=== PATIENT | female | born 1975 | race Caucasian/White ===

== ENCOUNTER 2017-08-31 01:00 | Day surgery (SDC) | payer BC ==
[2017-08-31] MEDS ORDERED: Ondansetron 4 MG/2 ML SDV IVPUSH ONE (01:11)
[2017-08-31] MEDS ORDERED: Ketorolac 30 MG/ML SDV IVPUSH ONE (01:11)
[2017-08-31] MEDS ORDERED: Sodium Chloride 0.9% 1,000 ML IV ONE (01:11)
--- NOTE | 2017-08-31 01:12 | EDM.PDOC ---
ED HPI GENERAL MEDICAL PROBLEM - General Chief Complaint: Abdominal Pain Stated Complaint: PAIN ON RIGHT SIDE Time Seen by Provider: 08/31/17 01:12 Source of Information: Reports: Patient - History of Present Illness INITIAL COMMENTS - FREE TEXT/NARRATIVE: HISTORY AND PHYSICAL: History of present illness: [Patient presents with right lower quadrant pain that began yesterday afternoon she's had one episode of vomiting no fever chills sweats rates pain 6 out of 10 worsened by movement Currently denies fever she did vomit one time in the waiting room no chills or sweats no chest pain shortness breath headache dizziness palpitation no bowel or urine symptoms ] Review of systems: As per history of present illness and below otherwise all systems reviewed and negative. Past medical history: As per history of present illness and as reviewed below otherwise noncontributory. Surgical history: As per history of present illness and as reviewed below otherwise noncontributory. Social history: No reported history of drug or alcohol abuse. Family history: As per history of present illness and as reviewed below otherwise noncontributory. Physical exam: HEENT: Atraumatic, normocephalic, pupils reactive, negative for conjunctival pallor or scleral icterus, mucous membranes moist, throat clear, neck supple, nontender, trachea midline. Lungs: Clear to auscultation, breath sounds equal bilaterally, chest nontender. Heart: S1S2, regular, negative for clicks, rubs, or JVD. Abdomen: Soft, nondistended, nontender. Negative for masses or hepatosplenomegaly. Negative for costovertebral tenderness. Pelvis: Stable nontender. Genitourinary: Deferred. Rectal: Deferred. Extremities: Atraumatic, negative for cords or calf pain. Neurovascular unremarkable. Neuro: Awake, alert, oriented. Cranial nerves II through XII unremarkable. Cerebellum unremarkable. Motor and sensory unremarkable throughout. Exam nonfocal. Diagnostics: [CBC CMP UA hCG lipase troponin CT abdomen pelvis with contrast ] Therapeutics: [1 L normal saline bolus Zofran 8 mg IV Toradol 30 mg IV ]1 g Rocephin IV Impression: Appendicitis [ abdominal pain ] Definitive disposition and diagnosis as appropriate pending reevaluation and review of above. Abdomen Pain Score (Numeric/FACES): 8 - Related Data Allergies Allergy/AdvReac Type Severity Reaction Status Date / Time acetaminophen [From Percocet] AdvReac Vomiting Verified 08/31/17 01:13 aspirin [From Percodan] AdvReac Vomiting Verified 08/31/17 01:13 oxycodone HCl [From Percocet] AdvReac Vomiting Verified 08/31/17 01:13 oxycodone terephthalate AdvReac Vomiting Verified 08/31/17 01:13 [From Percodan] Home Meds: Home Meds Cyclobenzaprine [Flexeril] 10 mg PO TID PRN 07/31/14 [History] Metoprolol Succinate 50 mg PO DAILY 07/31/14 [History] Social & Family History - Tobacco Use Smoking Status *Q: Current Every Day Smoker Years of Tobacco use: 20 Used Tobacco, but Quit: No Second Hand Smoke Exposure: No - Alcohol Use Days Per Week of Alcohol Use: 0 - Recreational Drug Use Recreational Drug Use: No ED ROS GENERAL - Review of Systems Review Of Systems: ROS reveals no pertinent complaints other than HPI. ED EXAM, GENERAL - Physical Exam Exam: See Below Course - Vital Signs Last Recorded V/S: Last Vital Signs Temp 98.7 F 08/31/17 02:53 Pulse 99 08/31/17 02:53 Resp 18 08/31/17 02:53 BP 135/84 08/31/17 02:53 Pulse Ox 94 L 08/31/17 02:53 - Orders/Labs/Meds Orders: Active Orders 24 hr Category Date Time Status Abdomen Pelvis w wo Cont [CT] Stat Exams 08/31/17 01:53 Taken UA W/MICROSCOPIC [URIN] Stat Lab 08/31/17 01:18 Ordered Sodium Chloride 0.9% [Normal Saline] 1,000 ml Med 08/31/17 03:00 Ordered IV STAT cefTRIAXone [Rocephin in Dextrose,Iso-Osm 1 GM/50 ML] 1 Med 08/31/17 02:58 Ordered gm Premix Bag 1 bag IV ONETIME Medication Orders Ceftriaxone Sodium/Dextrose 1 (gm/ Premix) 50 mls @ 100 mls/hr IV ONETIME ONE Stop: 08/31/17 03:27 Sodium Chloride (Normal Saline) 1,000 mls @ 125 mls/hr IV STAT MARISOL Labs: Laboratory Tests 08/31/17 08/31/17 08/31/17 Range/Units 01:18 01:38 01:38 WBC 18.20 H (4.0-11.0) K/uL RBC 4.79 (4.30-5.90) M/uL Hgb 14.9 (12.0-16.0) g/dL Hct 43.8 (36.0-46.0) % MCV 91.4 (80.0-98.0) fL MCH 31.1 (27.0-32.0) pg MCHC 34.0 (31.0-37.0) g/dL RDW Std Deviation 44.1 (28.0-62.0) fl RDW Coeff of Enzo 13 (11.0-15.0) % Plt Count 266 (150-400) K/uL MPV 9.60 (7.40-12.00) fL Neut % (Auto) 81.0 H (48.0-80.0) % Lymph % (Auto) 11.4 L (16.0-40.0) % [place] % (Auto) 6.6 (0.0-15.0) % Eos % (Auto) 0.8 (0.0-7.0) % Baso % (Auto) 0.2 (0.0-1.5) % Neut # (Auto) 14.8 H (1.4-5.7) K/uL Lymph # (Auto) 2.1 (0.6-2.4) K/uL [place] # (Auto) 1.2 H (0.0-0.8) K/uL Eos # (Auto) 0.1 (0.0-0.7) K/uL Baso # (Auto) 0.0 (0.0-0.1) K/uL Sodium 138 (136-145) mmol/L Potassium 3.8 (3.5-5.1) mmol/L Chloride 103 (98-107) mmol/L Carbon Dioxide 22.0 (21.0-32.0) mmol/L BUN 8 (7.0-18.0) mg/dL Creatinine 0.7 (0.6-1.0) mg/dL Est Cr Clr Drug Dosing 89.48 mL/min Estimated GFR (MDRD) > 60.0 ml/min Glucose 116 H (74-106) mg/dL Calcium 9.3 (8.5-10.1) mg/dL Total Bilirubin 0.3 (0.2-1.0) mg/dL AST 18 (15-37) IU/L ALT 24 (14-63) IU/L Alkaline Phosphatase 93 (46-116) U/L Troponin I < 0.050 (0.000-0.056) ng/mL Total Protein 6.9 (6.4-8.2) g/dL Albumin 3.7 (3.4-5.0) g/dL Globulin 3.2 (2.0-3.5) g/dL Albumin/Globulin Ratio 1.2 L (1.3-2.8) Lipase 109 (73-393) U/L HCG, Quant 3.0 mIU/mL Urine Color YELLOW Urine Appearance CLEAR Urine pH 6.0 (5.0-8.0) Ur Specific [place] >= 1.030 (1.001-1.035) Urine Protein 100 (NEGATIVE) mg/dL Urine Glucose (UA) NEGATIVE (NEGATIVE) mg/dL Urine Ketones 40 H (NEGATIVE) mg/dL Urine Occult Blood LARGE H (NEGATIVE) Urine Nitrite NEGATIVE (NEGATIVE) Urine Bilirubin MODERATE H (NEGATIVE) Urine Ictotest POSITIVE Urine Urobilinogen 0.2 (<2.0) EU/dL Ur Leukocyte Esterase NEGATIVE (NEGATIVE) Urine RBC 0-2 (0-2/HPF) Urine WBC 0-2 (0-5/HPF) Ur Epithelial Cells FEW (NONE-FEW) Urine Bacteria 2+ H (NEGATIVE) Urine Mucus LIGHT (NONE-MOD) Meds: Medications Generic Name Dose Route Start Last Admin Trade Name Freq PRN Reason Stop Dose Admin Ceftriaxone Sodium/Dextrose 1 50 mls @ 100 mls/hr 08/31/17 02:58 gm/ Premix IV 08/31/17 03:27 ONETIME ONE Sodium Chloride 1,000 mls @ 125 mls/hr 08/31/17 03:00 Normal Saline IV STAT MARISOL Discontinued Medications Generic Name Dose Route Start Last Admin Trade Name Freq PRN Reason Stop Dose Admin Sodium Chloride 1,000 mls @ 999 mls/hr 08/31/17 01:11 08/31/17 01:37 Normal Saline IV 08/31/17 02:11 999 mls/hr STAT ONE Administration Ketorolac Tromethamine 30 mg 08/31/17 01:11 08/31/17 01:39 Toradol IVPUSH 08/31/17 01:12 30 mg ONETIME ONE Administration Ondansetron HCl 8 mg 08/31/17 01:11 08/31/17 01:37 Zofran IVPUSH 08/31/17 01:12 8 mg ONETIME ONE Administration Departure - Departure Time of Disposition: 03:03 Disposition: Refer to Observation Condition: Fair Clinical Impression: Appendicitis - Discharge Information Referrals: PCP,None [Primary Care Provider] - Forms: ED Department Discharge - My Orders Last 24 Hours: My Active Orders 08/31/17 01:18 UA W/MICROSCOPIC [URIN] Stat 08/31/17 01:53 Abdomen Pelvis w wo Cont [CT] Stat 08/31/17 02:58 cefTRIAXone [Rocephin in Dextrose,Iso-Osm 1 GM/50 ML] 1 gm Premix Bag 1 bag IV ONETIME 08/31/17 03:00 Sodium Chloride 0.9% [Normal Saline] 1,000 ml IV STAT - Assessment/Plan Last 24 Hours: My Active Orders 08/31/17 01:18 UA W/MICROSCOPIC [URIN] Stat 08/31/17 01:53 Abdomen Pelvis w wo Cont [CT] Stat 08/31/17 02:58 cefTRIAXone [Rocephin in Dextrose,Iso-Osm 1 GM/50 ML] 1 gm Premix Bag 1 bag IV ONETIME 08/31/17 03:00 Sodium Chloride 0.9% [Normal Saline] 1,000 ml IV STAT
[2017-08-31 02:16] LABS: CHLORIDE,CL 103 mmol/L (98-107); SODIUM,NA 138 mmol/L (136-145)
[2017-08-31] MEDS ORDERED: cefTRIAXone 1 GM in Premix Bag 1 BAG IV ONE (02:58)
[2017-08-31] MEDS ORDERED: Sodium Chloride 0.9% 1,000 ML IV SCH (03:00)
[2017-08-31] MEDS ORDERED: CEFTRIAXONE IV ONE ×2 (03:15)
[2017-08-31] MEDS ORDERED: DEXTROSE 5% IV ONE ×2 (03:15)
[2017-08-31] MEDS ORDERED: WATER IV ONE ×2 (03:15)
[2017-08-31] MEDS ORDERED: Bupivacaine 25%/EPINEPHrine/PF 30 ML ONE (03:57)
[2017-08-31] MEDS ORDERED: Propofol 200 MG/20 ML SDV ONE (04:00)
[2017-08-31] MEDS ORDERED: Ondansetron 4 MG/2 ML SDV ONE (04:00)
[2017-08-31] MEDS ORDERED: Rocuronium 10 MG/ML 10 ML Syringe ONE (04:00)
[2017-08-31] MEDS ORDERED: Succinylcholine 200 MG/10 ML MDV ONE (04:00)
[2017-08-31] MEDS ORDERED: diphenhydrAMINE 50 MG/ML SDV ONE (04:00)
[2017-08-31] MEDS ORDERED: Midazolam 1 MG/ML 2 ML SDV ONE (04:00)
[2017-08-31] MEDS ORDERED: Dexamethasone 4 MG/ML 5 ML MDV ONE (04:00)
[2017-08-31] MEDS ORDERED: Lidocaine 2% 5 ML SDV ONE (04:00)
[2017-08-31] MEDS ORDERED: fentaNYL 250 MCG/5 ML SDV ONE (04:01)
--- NOTE | 2017-08-31 04:58 | PCM.PREANE ---
Preanesthetic Assessment - Procedure Proposed Procedure: Laparoscopic Appendectomy - Anesthesia/Transfusion/Family Hx Anesthesia History: Prior Anesthesia Without Reaction Family History of Anesthesia Reaction: No Transfusion History: Unknown - Review of Systems General: No Symptoms Pulmonary: Cough Cardiovascular: No Symptoms Gastrointestinal: Abdominal Pain, Nausea, Vomiting Neurological: No Symptoms Other: Reports: None - Physical Assessment NPO Status Date: 08/30/17 NPO Status Time: 20:00 O2 Sat by Pulse Oximetry: 95 Respiratory Rate: 14 Vital Signs: Last Vital Signs Temp 37.0 C 08/31/17 03:58 Pulse 87 08/31/17 03:58 Resp 14 08/31/17 03:58 BP 151/90 H 08/31/17 03:58 Pulse Ox 95 08/31/17 03:58 Height: 5 ft 4 in Weight: 86.183 kg ASA Class: 2E Mental Status: Alert & Oriented x3 Airway Class: Mallampati = 1 Dentition: Reports: Normal Dentition, Edentulous (on top), Broken Tooth/Teeth ( broken missing teeth on bottom black in color), Missing Tooth/Teeth, Caries Thyro-Mental Finger Breadths: 3 Mouth Opening Finger Breadths: 3 ROM/Head Extension: Full Lungs: Decreased Breath Sounds, Crackles Cardiovascular: Regular Rate - Lab Values: Laboratory Last Values WBC 18.20 K/uL (4.0-11.0) H 08/31/17 01:38 RBC 4.79 M/uL (4.30-5.90) 08/31/17 01:38 Hgb 14.9 g/dL (12.0-16.0) 08/31/17 01:38 Hct 43.8 % (36.0-46.0) 08/31/17 01:38 MCV 91.4 fL (80.0-98.0) 08/31/17 01:38 MCH 31.1 pg (27.0-32.0) 08/31/17 01:38 MCHC 34.0 g/dL (31.0-37.0) 08/31/17 01:38 RDW Std Deviation 44.1 fl (28.0-62.0) 08/31/17 01:38 RDW Coeff of Enzo 13 % (11.0-15.0) 08/31/17 01:38 Plt Count 266 K/uL (150-400) 08/31/17 01:38 MPV 9.60 fL (7.40-12.00) 08/31/17 01:38 Neut % (Auto) 81.0 % (48.0-80.0) H 08/31/17 01:38 Lymph % (Auto) 11.4 % (16.0-40.0) L 08/31/17 01:38 [place] % (Auto) 6.6 % (0.0-15.0) 08/31/17 01:38 Eos % (Auto) 0.8 % (0.0-7.0) 08/31/17 01:38 Baso % (Auto) 0.2 % (0.0-1.5) 08/31/17 01:38 Neut # (Auto) 14.8 K/uL (1.4-5.7) H 08/31/17 01:38 Lymph # (Auto) 2.1 K/uL (0.6-2.4) 08/31/17 01:38 [place] # (Auto) 1.2 K/uL (0.0-0.8) H 08/31/17 01:38 Eos # (Auto) 0.1 K/uL (0.0-0.7) 08/31/17 01:38 Baso # (Auto) 0.0 K/uL (0.0-0.1) 08/31/17 01:38 Sodium 138 mmol/L (136-145) 08/31/17 01:38 Potassium 3.8 mmol/L (3.5-5.1) 08/31/17 01:38 Chloride 103 mmol/L (98-107) 08/31/17 01:38 Carbon Dioxide 22.0 mmol/L (21.0-32.0) 08/31/17 01:38 BUN 8 mg/dL (7.0-18.0) 08/31/17 01:38 Creatinine 0.7 mg/dL (0.6-1.0) 08/31/17 01:38 Est Cr Clr Drug Dosing 89.48 mL/min 08/31/17 01:38 Estimated GFR (MDRD) > 60.0 ml/min 08/31/17 01:38 Glucose 116 mg/dL (74-106) H 08/31/17 01:38 Calcium 9.3 mg/dL (8.5-10.1) 08/31/17 01:38 Total Bilirubin 0.3 mg/dL (0.2-1.0) 08/31/17 01:38 AST 18 IU/L (15-37) 08/31/17 01:38 ALT 24 IU/L (14-63) 08/31/17 01:38 Alkaline Phosphatase 93 U/L (46-116) 08/31/17 01:38 Troponin I < 0.050 ng/mL (0.000-0.056) 08/31/17 01:38 Total Protein 6.9 g/dL (6.4-8.2) 08/31/17 01:38 Albumin 3.7 g/dL (3.4-5.0) 08/31/17 01:38 Globulin 3.2 g/dL (2.0-3.5) 08/31/17 01:38 Albumin/Globulin Ratio 1.2 (1.3-2.8) L 08/31/17 01:38 Lipase 109 U/L (73-393) 08/31/17 01:38 HCG, Quant 3.0 mIU/mL 08/31/17 01:38 Urine Color YELLOW 08/31/17 01:18 Urine Appearance CLEAR 08/31/17 01:18 Urine pH 6.0 (5.0-8.0) 08/31/17 01:18 Ur Specific [place] >= 1.030 (1.001-1.035) 08/31/17 01:18 Urine Protein 100 mg/dL (NEGATIVE) 08/31/17 01:18 Urine Glucose (UA) NEGATIVE mg/dL (NEGATIVE) 08/31/17 01:18 Urine Ketones 40 mg/dL (NEGATIVE) H 08/31/17 01:18 Urine Occult Blood LARGE (NEGATIVE) H 08/31/17 01:18 Urine Nitrite NEGATIVE (NEGATIVE) 08/31/17 01:18 Urine Bilirubin MODERATE (NEGATIVE) H 08/31/17 01:18 Urine Ictotest POSITIVE 08/31/17 01:18 Urine Urobilinogen 0.2 EU/dL (<2.0) 08/31/17 01:18 Ur Leukocyte Esterase NEGATIVE (NEGATIVE) 08/31/17 01:18 Urine RBC 0-2 (0-2/HPF) 08/31/17 01:18 Urine WBC 0-2 (0-5/HPF) 08/31/17 01:18 Ur Epithelial Cells FEW (NONE-FEW) 08/31/17 01:18 Urine Bacteria 2+ (NEGATIVE) H 08/31/17 01:18 Urine Mucus LIGHT (NONE-MOD) 08/31/17 01:18 - Allergies Allergies/Adverse Reactions: Allergies Allergy/AdvReac Type Severity Reaction Status Date / Time acetaminophen [From Percocet] AdvReac Vomiting Verified 08/31/17 01:13 aspirin [From Percodan] AdvReac Vomiting Verified 08/31/17 01:13 oxycodone HCl [From Percocet] AdvReac Vomiting Verified 08/31/17 01:13 oxycodone terephthalate AdvReac Vomiting Verified 08/31/17 01:13 [From Percodan] - Blood Blood Available: No - Acknowledgements Anesthesia Type Planned: General Anesthesia (RSI ET tube) Pt an Appropriate Candidate for the Planned Anesthesia: Yes Alternatives and Risks of Anesthesia Discussed w Pt/Guardian: Yes Pt/Guardian Understands and Agrees with Anesthesia Plan: Yes PreAnesthesia Questionnaire HEENT History: Reports: None Cardiovascular History: Reports: None Respiratory History: Reports: None Gastrointestinal History: Reports: None Genitourinary History: Reports: None 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: Musculoskeletal History: Reports: None Neurological History: Reports: None Psychiatric History: Reports: None Endocrine/Metabolic History: Reports: None Hematologic History: Reports: None Immunologic History: Reports: None Oncologic (Cancer) History: Reports: None Dermatologic History: Reports: None - Infectious Disease History Infectious Disease History: Reports: None - Past Surgical History Head Surgeries/Procedures: Reports: None GI Surgical History: Reports: Cholecystectomy Female Surgical History: Reports: Hysterectomy - SUBSTANCE USE Smoking Status *Q: Current Every Day Smoker Second Hand Smoke Exposure: No Days Per Week of Alcohol Use: 0 Recreational Drug Use History: No - HOME MEDS Home Medications: Home Meds Cyclobenzaprine [Flexeril] 10 mg PO TID PRN 07/31/14 [History] Metoprolol Succinate 50 mg PO DAILY 07/31/14 [History] - CURRENT (IN HOUSE) MEDS Current Meds: Current Medications Sodium Chloride (Normal Saline) 1,000 mls @ 125 mls/hr IV STAT MARISOL Last Admin: 08/31/17 03:12 Dose: 125 mls/hr Discontinued Medications Dexamethasone (Dexamethasone) Confirm Administered Dose 20 mg .ROUTE .STK-MED ONE Stop: 08/31/17 04:01 Diphenhydramine HCl (Benadryl) Confirm Administered Dose 50 mg .ROUTE .STK-MED ONE Stop: 08/31/17 04:01 Fentanyl (Sublimaze) Confirm Administered Dose 250 mcg .ROUTE .STK-MED ONE Stop: 08/31/17 04:02 Sodium Chloride (Normal Saline) 1,000 mls @ 999 mls/hr IV STAT ONE Stop: 08/31/17 02:11 Last Admin: 08/31/17 01:37 Dose: 999 mls/hr Ceftriaxone Sodium/Dextrose 1 (gm/ Premix) 50 mls @ 100 mls/hr IV ONETIME ONE Stop: 08/31/17 03:27 Last Admin: 08/31/17 03:57 Dose: Not Given Ceftriaxone Sodium 1 mg/ (Dextrose/Water) 50 mls @ 100 mls/hr IV ONETIME ONE Stop: 08/31/17 03:27 Last Admin: 08/31/17 03:23 Dose: 100 mls/hr Bupivacaine HCl/Epinephrine Bitart (Sensorc Mpf 0.25%-Epi [id number]) Confirm Administered Dose 30 mls @ as directed .ROUTE .STK-MED ONE Stop: 08/31/17 03:58 Ketorolac Tromethamine (Toradol) 30 mg IVPUSH ONETIME ONE Stop: 08/31/17 01:12 Last Admin: 08/31/17 01:39 Dose: 30 mg Lidocaine (Xylocaine-Mpf 2%) Confirm Administered Dose 5 ml .ROUTE .STK-MED ONE Stop: 08/31/17 04:01 Midazolam HCl (Versed 1 Mg/Ml) Confirm Administered Dose 2 mg .ROUTE .STK-MED ONE Stop: 08/31/17 04:01 Ondansetron HCl (Zofran) 8 mg IVPUSH ONETIME ONE Stop: 08/31/17 01:12 Last Admin: 08/31/17 01:37 Dose: 8 mg Ondansetron HCl (Zofran) Confirm Administered Dose 4 mg .ROUTE .STK-MED ONE Stop: 08/31/17 04:01 Propofol (Diprivan 20 Ml) Confirm Administered Dose 200 mg .ROUTE .STK-MED ONE Stop: 08/31/17 04:01 Rocuronium [place] (Zemuron) Confirm Administered Dose 100 mg .ROUTE .STK-MED ONE Stop: 08/31/17 04:01 Succinylcholine Chloride (Quelicin) Confirm Administered Dose 200 mg .ROUTE .STskedge.me -MED ONE Stop: 08/31/17 04:01
--- NOTE | 2017-08-31 05:21 | HP ---
DATE OF : 1975 PRIMARY CARE PHYSICIAN: None PCP Consult was called and the patient was seen shortly after. CONSULTING QUESTION: Acute appendicitis. HISTORY OF PRESENT ILLNESS: The patient is a 42-year-old lady with poor dentition, complaining over a 36 hour history of a gradual onset of diffuse lower abdominal pain. The patient does not know how long it has been going on, just said it happened yesterday. Seek help in the emergency room. CAT scan shows a dilated appendix with stranding dirty fat, read as acute appendicitis. No perforation. Surgery was then consulted. The patient remarked that she has thrown up and felt lossy and had pain, and denied prior episode. PAST MEDICAL HISTORY: Denied diabetes, [place], CVA. The patient has hypertension, is taking metoprolol. PAST SURGICAL HISTORY: Total abdominal hysterectomy, laparoscopic cholecystectomy, a dental surgery. ALLERGIES: Please refer to nursing for details. MEDICATIONS: Please refer nursing for details. REVIEW OF SYSTEMS: Same as history of present illness. FAMILY HISTORY: Noncontributory. PHYSICAL EXAMINATION: GENERAL: A very pleasant, nice lady, appeared older than stated age, in no acute distress. HEENT: Normocephalic, atraumatic. Sclerae anicteric, and again poor dentition. LUNGS: Clear to auscultation. HEART: Regular rate and rhythm. ABDOMEN: Soft, nondistended. No pulsating tender midline abdominal structure. Well-healed laparoscopic surgery. No hernia appreciated. Well localized tenderness at the McBurney point. No rebound tenderness. LABORATORY DATA: Upon consultation, white count is 18. CAT scan is acute appendicitis without perforation or rupture and nonobstructive kidney stone on the left side and colonic diverticulosis and status post hysterectomy and cholecystectomy. ASSESSMENT AND PLAN: Reviewed CAT scan finding and history and physical with the patient and the patient has acute appendicitis and will benefit from a timely surgical intervention and we offered patient laparoscopic appendectomy. Risks and benefits discussed with the patient including, but not limited to bleeding, infection, damage to nearby organs and convert to open surgery or drain placement. The patient voiced understanding and proceed with plan. We will continue IV fluids at 125 and Rocephin already given, and we will obtain operative consent and proceed with surgery. The patient voiced understanding. YENNIFER / LIAM /[id number]
[2017-08-31] MEDS ORDERED: Glycopyrrolate 0.2 MG/ML SDV ONE (05:24)
[2017-08-31] MEDS ORDERED: Neostigmine Methylsulfate 1 MG/ML 5 ML Syringe ONE (05:24)
[2017-08-31] MEDS ORDERED: Albuterol 6.7 GM Inhaler INH ONE (05:46)
[2017-08-31] MEDS ORDERED: fentaNYL 100 MCG/2 ML SDV IVPUSH PRN (05:54)
[2017-08-31] MEDS ORDERED: Acetaminophen/oxyCODONE 325-7.5 MG Tab PO PRN (05:56)
[2017-08-31] MEDS ORDERED: Ondansetron 4 MG/2 ML SDV IVPUSH PRN (05:56)
[2017-08-31] MEDS ORDERED: Lactated Ringers 1,000 ML IV SCH (06:00)
--- NOTE | 2017-08-31 06:35 | PCM.POSTAN ---
POST ANESTHESIA ASSESSMENT - MENTAL STATUS Mental Status: Alert, Oriented - RESPIRATORY Respiratory Status: Supplemental Oxygen (O2 via nasal canula) - CARDIOVASCULAR CV Status: Pulse Rate WNL, Blood Pressure Stable - PAIN Pain Score: 3 - POST OP HYDRATION Hydration Status: Adequate & Stable - OBSERVATIONS Free Text/Narrative:: resting
--- NOTE | 2017-08-31 06:54 | OR ---
SURGEON: Randal Graham MD DATE OF PROCEDURE: 08/31/2017 PREOPERATIVE DIAGNOSIS: Acute appendicitis. POSTOPERATIVE DIAGNOSIS: Acute appendicitis. PROCEDURE PERFORMED: Laparoscopic appendectomy. COMPLICATIONS: None. FINDINGS: Appendix is horrendously grossly swollen and edematous in the distal part and dusky and looks like it is about to rupture. Gross rupture is not observed, and the tip is tightly attached to surrounding organ and cannot be dissected almost, suggests it has been there for several days. DESCRIPTION OF PROCEDURE: The patient was taken to the operating room and placed in the supine position. Following induction of general endotracheal anesthesia, the patient's abdomen was prepped and draped in the sterile fashion. A time-out has been called. The patient was identified. The procedure was identified. The antibiotics were identified. The procedure then proceeded. The abdomen was prepped and draped in a standard fashion. After assessment of appropriate landmarks, a 12 millimeter trocar was inserted supraumbilically using Optiview and pneumoperitoneum was then achieved. This was followed with placement of 5 millimeter port in the right upper quadrant and another 5 millimeter port infraumbilically. The camera was inserted supraumbilical site and two laparoscopic Robin retractors were then inserted through the other two sites. Following the cecum, the appendix was located. The appendix was then lifted up, and using a GI stapler the appendix was amputated at the base. And using the GI stapler, the mesoappendix was then amputated. The appendix was retrieved by an endoscopic bag and sent for pathologist. This was then followed by re-insertion of the camera to examine the staple line, and hemostasis. The trocars were then removed. The umbilical site was closed with 2-0 Vicryl deep stitch and 4-0 Vicryl and Dermabond; the other two 5 mm port sites were closed with 4-0 Vicryl and Dermabond. The patient was then awakened, extubated, and transferred to the recovery room in hemodynamically stable condition. Prior to closing, sponge count and instrument count was correct. Intraoperative findings as dictated above. Gross perforation is not observed. At the end of the case, a piece of Surgicel was added for hemostasis. Dr. Graham was present throughout the whole procedure. As always, thank you for the kind referral. YENNIFER / LIAM /[id number] JUDITH
[2017-08-31 12:04] VITALS: BP 119/72
--- NOTE | 2017-08-31 12:38 | CT ---
EXAM DATE: 08/31/17 PATIENT'S AGE: 42 Patient: LORI RICHARDS Facility: [place], [place] : 1975 Study: CT Abdomen/Pelvis W/ and W/O Cont [id number] 2:31:08 AM Ordering Physician: Katalina Veras Final Report: INDICATION: Right lower quadrant pain TECHNIQUE: CT abdomen and pelvis acquired without and with IV contrast. COMPARISON: None FINDINGS: Lower chest: Unremarkable. Liver: Unremarkable. Spleen: Unremarkable. Pancreas: Unremarkable. Gallbladder and bile ducts: Status post cholecystectomy. Adrenal glands: Unremarkable. Kidneys: Nonobstructing 6 mm stone in the left kidney. There are few subcentimeter hypodensities in both kidneys, too small to accurately characterize. GI tract: The appendix measures 1.8 cm in diameter. There is periappendiceal fat stranding. No abscess or extraluminal air. Mild, diffuse colonic diverticulosis. Vascular structures: Unremarkable. Lymph nodes: Unremarkable. Miscellaneous: Unremarkable. No free air or significant free fluid. Pelvic Organs: Status post hysterectomy. Trace free fluid in the pelvis. Bones: Unremarkable for age. IMPRESSION: 1. Acute appendicitis without evidence for rupture or abscess formation. These findings were discussed with Dr. Darden at 2:56 a.m. on August 31, 2017. 2. Nonobstructive left nephrolithiasis. 3. Colonic diverticulosis. 4. Status post hysterectomy and cholecystectomy. Please note that all CT scans at this facility use dose modulation, iterative reconstruction, and/or weight-based dosing when appropriate to reduce radiation dose to as low as reasonably achievable. Dictated by Monica Patino MD @ Aug 31 2017 2:50AM (Electronic Signature) Report Signed by Proxy. [facility]
--- NOTE | 2017-08-31 13:52 | PCM48HPAN ---
Post Anesthesia Note - EVALUATION WITHIN 48HRS OF ANESTHETIC Vital Signs in Normal Range: Yes Patient Participated in Evaluation: Yes Respiratory Function Stable: Yes Airway Patent: Yes Cardiovascular Function Stable: Yes Hydration Status Stable: Yes Pain Control Satisfactory: Yes Nausea and Vomiting Control Satisfactory: Yes Mental Status Recovered: Yes Resp Rate: 18 - COMMENTS/OBSERVATIONS Free Text/Narrative:: Benton her care was good. Pain controlled. Satisfied with care by WOOD MODEL BUILDER early this AM.
== END 2017-08-31 14:00 | disposition home or self-care (01) ==
LOC: MW.ED 01:00 → MW.SDS 03:44 → MW.MS 03:47 → MW.SDS 14:00
PROVIDERS: ATTEND Surgery
DX: K35.80 Unspecified acute appendicitis (principal); I10 Essential (primary) hypertension; Z79.899 Other long term (current) drug therapy
CPT/HCPCS: 36415; 44970; 74178; 80053; 81001; 83690; 84484; 84702; 85025; 96361; 96365; 96375; 99285; A9270; C1776; J0330; J0696; J1100; J1200; J1885; J2250; J2405; J3010; J7040; J7060; J7120; 00840; 88304; 99284; J2704

== ENCOUNTER 2019-03-02 08:07 | Emergency (ER) | payer BC ==
[2019-03-02] MEDS ORDERED: Sodium Chloride 0.9% 1,000 ML IV ONE (08:32)
[2019-03-02] MEDS ORDERED: Ketorolac 30 MG/ML SDV IVPUSH ONE ×3 (08:46→09:15)
[2019-03-02 09:07] LABS: BLOOD UREA NITROGEN,BUN 10 mg/dL (7.0-18.0); CARBON DIOXIDE,CO2 23.5 mmol/L (21.0-32.0); CHLORIDE,CL 105 mmol/L (98-107); GLUCOSE RANDOM 92 mg/dL (74-106); POTASSIUM,K 4.4 mmol/L (3.5-5.1); SODIUM,NA 139 mmol/L (136-145)
[2019-03-02] MEDS ORDERED: Ondansetron 4 MG/2 ML SDV IVPUSH ONE (09:15)
[2019-03-02] MEDS ORDERED: Morphine 4 MG/ML Syringe IVPUSH ONE (09:16)
--- NOTE | 2019-03-02 10:03 | EDM.PDOC ---
ED HPI GENERAL MEDICAL PROBLEM - General Chief Complaint: Abdominal Pain Stated Complaint: ABD PAIN Time Seen by Provider: 03/02/19 08:18 Source of Information: Reports: Patient History Limitations: Reports: No Limitations - History of Present Illness INITIAL COMMENTS - FREE TEXT/NARRATIVE: History of present illness: []Patient awoke at 6 AM this morning with severe left flank pain and left lower quadrant pain. She has not had this pain before. She denies any fevers, chills, vomiting, pain with urination or bleeding, but is nauseated. Review of systems: As per history of present illness and below otherwise all systems reviewed and negative. Past medical history: As per history of present illness and as reviewed below otherwise noncontributory. Surgical history: As per history of present illness and as reviewed below otherwise noncontributory. Social history: No reported history of drug or alcohol abuse. Family history: As per history of present illness and as reviewed below otherwise noncontributory. Physical exam: General: Well developed, well nourished in full distress HEENT: Atraumatic, normocephalic, pupils reactive, negative for conjunctival pallor or scleral icterus, mucous membranes moist, throat clear, neck supple, nontender, trachea midline. Lungs: Clear to auscultation, breath sounds equal bilaterally, chest nontender. Heart: S1S2, regular, negative for clicks, rubs, or JVD. Abdomen: NABS, Soft, nondistended, nontender. Negative for masses or hepatosplenomegaly. Negative for costovertebral tenderness. Pelvis: Stable nontender. Genitourinary: Deferred. Rectal: Deferred. Extremities: Atraumatic, negative for cords or calf pain. Neurovascular unremarkable. Neuro: Awake, alert, oriented. Cranial nerves II through XII unremarkable. Cerebellum unremarkable. Motor and sensory unremarkable throughout. Exam nonfocal. Skin:warm and dry Diagnostics: CBC, chemistry, UA, hCG CT abdomen and pelvis without contrast Therapeutics: Saline, Toradol,morphine, Zofran ED Course: srable Impression: Left 3 mm stone at the UVJ Prescriptions: fLomax, tramadol Plan: Follow-up with urology, go home Definitive disposition and diagnosis as appropriate pending reevaluation and review of above. left lower abd Pain Score (Numeric/FACES): 8 - Related Data Allergies Allergy/AdvReac Type Severity Reaction Status Date / Time No Known Allergies Allergy Verified 03/02/19 09:14 Home Meds: Home Meds Metoprolol Succinate 100 mg PO DAILY 07/31/14 [History] Levothyroxine [Synthroid] 50 mcg PO ACBREAKFAST 03/02/19 [History] Tamsulosin HCl [Flomax] 0.4 mg PO DAILY #14 cap.er.24h 03/02/19 [Rx] traMADol HCl [Tramadol HCl] 50 mg PO Q6H PRN #16 tablet 03/02/19 [Rx] valACYclovir [Valtrex] 03/02/19 [History] Past Medical History HEENT History: Reports: None Cardiovascular History: Reports: None, Hypertension Respiratory History: Reports: None Gastrointestinal History: Reports: None Genitourinary History: Reports: None [employer] History: Reports: Musculoskeletal History: Reports: None Neurological History: Reports: None Psychiatric History: Reports: None Endocrine/Metabolic History: Reports: None Hematologic History: Reports: None Immunologic History: Reports: None Oncologic (Cancer) History: Reports: None Dermatologic History: Reports: None - Infectious Disease History Infectious Disease History: Reports: None - Past Surgical History Head Surgeries/Procedures: Reports: None GI Surgical History: Reports: Appendectomy, Cholecystectomy Female Surgical History: Reports: Hysterectomy Social & Family History - Family History Family Medical History: Noncontributory - Tobacco Use Smoking Status *Q: Current Every Day Smoker Years of Tobacco use: 30 Packs/Tins Daily: 1 - Caffeine Use Caffeine Use: Reports: Coffee - Recreational Drug Use Recreational Drug Use: No ED ROS GENERAL - Review of Systems Review Of Systems: See Below ED EXAM, RENAL/ - Physical Exam Exam: See Below Course - Vital Signs Last Recorded V/S: Last Vital Signs Temp 96.3 F 03/02/19 08:15 Pulse 72 03/02/19 08:15 Resp 18 03/02/19 08:15 BP 157/92 H 03/02/19 08:15 Pulse Ox 100 03/02/19 08:15 - Orders/Labs/Meds Orders: Active Orders 24 hr Category Date Time Status CULTURE URINE [RM] Routine Lab 03/02/19 08:52 Received Labs: Laboratory Tests 03/02/19 03/02/19 03/02/19 Range/Units 08:35 08:35 08:52 WBC 9.63 (4.0-11.0) K/uL RBC 4.84 (4.30-5.90) M/uL Hgb 15.3 (12.0-16.0) g/dL Hct 44.9 (36.0-46.0) % MCV 92.8 (80.0-98.0) fL MCH 31.6 (27.0-32.0) pg MCHC 34.1 (31.0-37.0) g/dL RDW Std Deviation 45.3 (28.0-62.0) fl RDW Coeff of Enzo 13 (11.0-15.0) % Plt Count 247 (150-400) K/uL MPV 9.90 (7.40-12.00) fL Neut % (Auto) 65.5 (48.0-80.0) % Lymph % (Auto) 24.9 (16.0-40.0) % [place] % (Auto) 7.4 (0.0-15.0) % Eos % (Auto) 1.8 (0.0-7.0) % Baso % (Auto) 0.4 (0.0-1.5) % Neut # (Auto) 6.3 H (1.4-5.7) K/uL Lymph # (Auto) 2.4 (0.6-2.4) K/uL [place] # (Auto) 0.7 (0.0-0.8) K/uL Eos # (Auto) 0.2 (0.0-0.7) K/uL Baso # (Auto) 0.0 (0.0-0.1) K/uL Nucleated RBC % 0.0 /100WBC Nucleated RBCs # 0 K/uL Sodium 139 (136-145) mmol/L Potassium 4.4 (3.5-5.1) mmol/L Chloride 105 (98-107) mmol/L Carbon Dioxide 23.5 (21.0-32.0) mmol/L BUN 10 (7.0-18.0) mg/dL Creatinine 0.8 (0.6-1.0) mg/dL Est Cr Clr Drug Dosing 77.49 mL/min Estimated GFR (MDRD) > 60.0 ml/min Glucose 92 (74-106) mg/dL Calcium 8.2 L (8.5-10.1) mg/dL Total Bilirubin 0.5 (0.2-1.0) mg/dL AST 17 (15-37) IU/L ALT 24 (14-63) IU/L Alkaline Phosphatase 91 (46-116) U/L Total Protein 7.1 (6.4-8.2) g/dL Albumin 3.9 (3.4-5.0) g/dL Globulin 3.2 (2.6-4.0) g/dL Albumin/Globulin Ratio 1.2 (0.9-1.6) Urine Color YELLOW Urine Appearance HAZY Urine pH 5.5 (5.0-8.0) Ur Specific [place] 1.015 (1.001-1.035) Urine Protein 30 H (NEGATIVE) mg/dL Urine Glucose (UA) NEGATIVE (NEGATIVE) mg/dL Urine Ketones NEGATIVE (NEGATIVE) mg/dL Urine Occult Blood LARGE H (NEGATIVE) Urine Nitrite NEGATIVE (NEGATIVE) Urine Bilirubin NEGATIVE (NEGATIVE) Urine Urobilinogen 0.2 (<2.0) EU/dL Ur Leukocyte Esterase NEGATIVE (NEGATIVE) Urine RBC 10-12 (0-2/HPF) Urine WBC 1-3 (0-5/HPF) Ur Epithelial Cells FEW (NONE-FEW) Urine Bacteria FEW (NEGATIVE) Urine Mucus LIGHT (NONE-MOD) Urine HCG, Qual (NEGATIVE) 03/02/19 Range/Units 08:52 WBC (4.0-11.0) K/uL RBC (4.30-5.90) M/uL Hgb (12.0-16.0) g/dL Hct (36.0-46.0) % MCV (80.0-98.0) fL MCH (27.0-32.0) pg MCHC (31.0-37.0) g/dL RDW Std Deviation (28.0-62.0) fl RDW Coeff of Enzo (11.0-15.0) % Plt Count (150-400) K/uL MPV (7.40-12.00) fL Neut % (Auto) (48.0-80.0) % Lymph % (Auto) (16.0-40.0) % [place] % (Auto) (0.0-15.0) % Eos % (Auto) (0.0-7.0) % Baso % (Auto) (0.0-1.5) % Neut # (Auto) (1.4-5.7) K/uL Lymph # (Auto) (0.6-2.4) K/uL [place] # (Auto) (0.0-0.8) K/uL Eos # (Auto) (0.0-0.7) K/uL Baso # (Auto) (0.0-0.1) K/uL Nucleated RBC % /100WBC Nucleated RBCs # K/uL Sodium (136-145) mmol/L Potassium (3.5-5.1) mmol/L Chloride (98-107) mmol/L Carbon Dioxide (21.0-32.0) mmol/L BUN (7.0-18.0) mg/dL Creatinine (0.6-1.0) mg/dL Est Cr Clr Drug Dosing mL/min Estimated GFR (MDRD) ml/min Glucose (74-106) mg/dL Calcium (8.5-10.1) mg/dL Total Bilirubin (0.2-1.0) mg/dL AST (15-37) IU/L ALT (14-63) IU/L Alkaline Phosphatase (46-116) U/L Total Protein (6.4-8.2) g/dL Albumin (3.4-5.0) g/dL Globulin (2.6-4.0) g/dL Albumin/Globulin Ratio (0.9-1.6) Urine Color Urine Appearance Urine pH (5.0-8.0) Ur Specific [place] (1.001-1.035) Urine Protein (NEGATIVE) mg/dL Urine Glucose (UA) (NEGATIVE) mg/dL Urine Ketones (NEGATIVE) mg/dL Urine Occult Blood (NEGATIVE) Urine Nitrite (NEGATIVE) Urine Bilirubin (NEGATIVE) Urine Urobilinogen (<2.0) EU/dL Ur Leukocyte Esterase (NEGATIVE) Urine RBC (0-2/HPF) Urine WBC (0-5/HPF) Ur Epithelial Cells (NONE-FEW) Urine Bacteria (NEGATIVE) Urine Mucus (NONE-MOD) Urine HCG, Qual NEGATIVE (NEGATIVE) Meds: Medications Discontinued Medications Generic Name Dose Route Start Last Admin Trade Name Freq PRN Reason Stop Dose Admin Sodium Chloride 1,000 mls @ 999 mls/hr 03/02/19 08:32 03/02/19 09:04 Normal Saline IV 03/02/19 09:32 999 mls/hr .Bolus ONE Administration Ketorolac Tromethamine 30 mg 03/02/19 08:46 03/02/19 09:09 Toradol IVPUSH 03/02/19 08:47 Not Given ONETIME ONE Ketorolac Tromethamine 30 mg 03/02/19 09:15 03/02/19 09:09 Toradol IVPUSH 03/02/19 09:16 Not Given ONETIME ONE Ketorolac Tromethamine 30 mg 03/02/19 09:10 03/02/19 09:14 Toradol IVPUSH 03/02/19 09:11 30 mg ONETIME ONE Administration Morphine Sulfate 4 mg 03/02/19 09:16 03/02/19 09:20 Morphine IVPUSH 03/02/19 09:17 4 mg ONETIME ONE Administration Ondansetron HCl 4 mg 03/02/19 09:15 03/02/19 09:20 Zofran IVPUSH 03/02/19 09:16 4 mg ONETIME ONE Administration Tamsulosin HCl 0.4 mg 03/02/19 10:53 Flomax PO 03/02/19 10:54 ONETIME ONE Departure - Departure Time of Disposition: 10:57 Disposition: Home, Self-Care 01 Condition: Good Clinical Impression: Ureterolithiasis - Discharge Information *PRESCRIPTION DRUG MONITORING PROGRAM REVIEWED*: No *COPY OF PRESCRIPTION DRUG MONITORING REPORT IN PATIENT [place]: No Prescriptions: Tamsulosin HCl [Flomax] 0.4 mg PO DAILY #14 cap.er.24h traMADol HCl [Tramadol HCl] 50 mg PO Q6H PRN #16 tablet PRN Reason: Pain Referrals: PCP,None [Primary Care Provider] - Forms: ED Department Discharge Additional Instructions: The following information is given to patients seen in the emergency department who are being discharged to home. This information is to outline your options for follow-up care. We provide all patients seen in our emergency department with a follow-up referral. The need for follow-up, as well as the timing and circumstances, are variable depending upon the specifics of your emergency department visit. If you don't have a primary care physician on staff, we will provide you with a referral. We always advise you to contact your personal physician following an emergency department visit to inform them of the circumstance of the visit and for follow-up with them and/or the need for any referrals to a consulting specialist. The emergency department will also refer you to a specialist when appropriate. This referral assures that you have the opportunity for follow-up care with a specialist. All of these measure are taken in an effort to provide you with optimal care, which includes your follow-up. Under all circumstances we always encourage you to contact your private physician who remains a resource for coordinating your care. When calling for follow-up care, please make the office aware that this follow-up is from your recent emergency room visit. If for any reason you are refused follow-up, please contact the [facility] Emergency Department at and asked to speak to the emergency department charge nurse. [facility] Specialty [facility] - Urology [address] [place] [id number] - My Orders Last 24 Hours: My Active Orders 03/02/19 08:52 CULTURE URINE [RM] Routine - Assessment/Plan Last 24 Hours: My Active Orders 03/02/19 08:52 CULTURE URINE [RM] Routine
--- NOTE | 2019-03-02 10:06 | CT ---
INDICATION: Left flank pain. Bladder pain. COMPARISON: 08/31/2017. TECHNIQUE: CT of the abdomen and pelvis without contrast. FINDINGS: Mild basilar atelectasis is similar to prior exam. Status post cholecystectomy. Liver, spleen, pancreas and adrenal glands are unremarkable. Small distal left ureteral calculus near the UVJ measuring 3 mm in diameter (image 133 axial), with mild left hydronephrosis. Right kidney is unremarkable. Nonobstructing left inferior renal calculus is noted, but is smaller compared to prior. The urinary bladder is nondistended. Trace free pelvic fluid. Diverticulosis without evidence of acute inflammation. Status post appendectomy. No evidence of bowel obstruction. No lymphadenopathy in the abdomen or pelvis. Bones are unremarkable. IMPRESSION: Small left distal ureteral calculus near the UVJ measuring 3 mm, with mild left hydronephrosis. Please note that all CT scans at this facility use dose modulation, iterative reconstruction, and/or weight-based dosing when appropriate to reduce radiation dose to as low as reasonably achievable. Dictated by Joseluis Bryant MD @ Mar 02 2019 9:59AM Signed by Dr. Joseluis Bryant @ Mar 02 2019 10:04AM
[2019-03-02] MEDS ORDERED: Tamsulosin 0.4 MG Cap.ER PO ONE (10:53)
[2019-03-02 11:11] VITALS: BP 122/65; PULSE 70
== END 2019-03-02 11:17 | disposition home or self-care (01) ==
LOC: MW.ED 08:07
DX: N13.2 Hydronephrosis with renal and ureteral calculous obstruction (principal); I10 Essential (primary) hypertension; F17.210 Nicotine dependence, cigarettes, uncomplicated; Z79.899 Other long term (current) drug therapy
CPT/HCPCS: 36415; 74176; 80053; 81001; 81025; 85025; 87086; 96361; 96374; 96375; 99284; J1885; J2270; J2405; J7040

== ENCOUNTER 2021-01-31 14:26 | Emergency (ER) | payer BC ==
[2021-01-31] MEDS ORDERED: Sodium Chloride 0.9% 1,000 ML IV ONE (14:32)
[2021-01-31] MEDS ORDERED: methylPREDNISolone Sodium Succinate 125 MG/2 ML SDV IVPUSH ONE (14:33)
[2021-01-31] MEDS ORDERED: diphenhydrAMINE 50 MG/ML SDV IVPUSH ONE (14:33)
[2021-01-31] MEDS ORDERED: Famotidine 20 MG/2 ML SDV IVPUSH ONE (14:35)
--- NOTE | 2021-01-31 14:42 | EDM.PDOC ---
ED HPI GENERAL MEDICAL PROBLEM - General Chief Complaint: Allergic Reaction Stated Complaint: ALLERGIC REACTION TO MEDICATION Time Seen by Provider: 01/31/21 14:29 Source of Information: Reports: Patient History Limitations: Reports: No Limitations - History of Present Illness INITIAL COMMENTS - FREE TEXT/NARRATIVE: 45-year-old female presents for concern for allergic reaction to new medication. Patient started losartan 5 days ago. Last night she noted a scratchy throat and notes that this morning it progressed to feeling like her throat is closing up. She denies any shortness of breath or drooling. She is tolerating secretions. No rashes, nausea, vomiting. No history of allergic reaction like this in the past. throat Pain Score (Numeric/FACES): 7 - Related Data Allergies Allergy/AdvReac Type Severity Reaction Status Date / Time No Known Allergies Allergy Verified 01/31/21 14:33 Home Meds: Home Meds Metoprolol Succinate 200 mg PO DAILY 07/31/14 [History] Levothyroxine [Synthroid] 100 mcg PO ACBREAKFAST 03/02/19 [History] valACYclovir [Valtrex] ASDIRECTED 03/02/19 [History] Losartan Potassium 12.5 mg PO DAILY 01/31/21 [History] predniSONE 40 mg PO DAILY 5 Days #10 tab 01/31/21 [Rx] Past Medical History HEENT History: Reports: None Cardiovascular History: Reports: None, Hypertension Respiratory History: Reports: None Gastrointestinal History: Reports: None Genitourinary History: Reports: None [employer] History: Reports: Musculoskeletal History: Reports: None Neurological History: Reports: None Psychiatric History: Reports: None Endocrine/Metabolic History: Reports: None Hematologic History: Reports: None Immunologic History: Reports: None Oncologic (Cancer) History: Reports: None Dermatologic History: Reports: None - Infectious Disease History Infectious Disease History: Reports: None - Past Surgical History Head Surgeries/Procedures: Reports: None GI Surgical History: Reports: Appendectomy, Cholecystectomy Female Surgical History: Reports: Hysterectomy Social & Family History - Family History Family Medical History: No Pertinent Family History - Caffeine Use Caffeine Use: Reports: Coffee ED ROS ALLERGIC REACTION - Review of Systems Review Of Systems: Comprehensive ROS is negative, except as noted in HPI. ED EXAM GENERAL NO PERIP PULSE - Physical Exam Exam: See Below Exam Limited By: No Limitations General Appearance: Alert, WD/WN, No Apparent Distress Ears: Hearing Grossly Normal Nose: Normal Inspection Throat/Mouth: Normal Inspection, Normal Oropharynx, Normal Voice, No Airway Compromise Head: Atraumatic, Normocephalic Neck: Normal Inspection Respiratory/Chest: No Respiratory Distress, Lungs Clear, Normal Breath Sounds, No Accessory Muscle Use Cardiovascular: Normal Peripheral Pulses, Regular Rate, Rhythm Extremities: Normal Inspection Neurological: Alert, Normal Cognition, Normal Gait Psychiatric: Normal Affect, Normal Mood Skin Exam: Warm, Dry, Normal Color Course - Vital Signs Last Recorded V/S: Last Vital Signs Temp 96.7 F L 01/31/21 14:35 Pulse 76 01/31/21 15:45 Resp 15 01/31/21 15:45 BP 145/80 H 01/31/21 15:45 Pulse Ox 98 01/31/21 15:45 - Orders/Labs/Meds Orders: Active Orders 24 hr Category Date Time Status Pulse Oximetry [RC] ASDIRECTED Care 01/31/21 14:32 Active Saline Lock Insert [OM.PC] Stat Oth 01/31/21 14:32 Ordered Meds: Medications Discontinued Medications Generic Name Dose Route Start Last Admin Trade Name Murray PRN Reason Stop Dose Admin Diphenhydramine HCl 25 mg 01/31/21 14:33 01/31/21 15:02 Diphenhydramine 50 Mg/Ml Sdv IVPUSH 01/31/21 14:34 25 mg ONETIME ONE Administration Famotidine 20 mg 01/31/21 14:35 01/31/21 15:07 Famotidine 20 Mg/2 Ml Sdv IVPUSH 01/31/21 14:36 20 mg ONETIME ONE Administration Sodium Chloride 1,000 mls @ 999 mls/hr 01/31/21 14:32 01/31/21 14:45 Normal Saline IV 01/31/21 15:32 999 mls/hr .Bolus ONE Administration Methylprednisolone Sodium Succinate 125 mg 01/31/21 14:33 01/31/21 15:04 Methylprednisolone Sodium Succinate 125 Mg/2 Ml Sdv IVPUSH 01/31/21 14:34 125 mg ONETIME ONE Administration - Re-Assessments/Exams Free Text/Narrative Re-Assessment/Exam: 01/31/21 14:41 Patient is well-appearing on exam. Her voice is a bit muffled but otherwise normal exam. Will treat for allergic reaction. Will recommend avoiding losartan. 01/31/21 16:00 Patient notes symptomatic improvement. Her voice no longer sounds muffled. Will discharge with steroids for the next 5 days. Again avoid losartan and follow-up with PMD. Return precautions were discussed at length. Departure - Departure Time of Disposition: 16:01 Disposition: Home, Self-Care 01 Condition: Good Clinical Impression: Allergic reaction Qualifiers: Encounter type: initial encounter Qualified Code(s): T78.40XA - Allergy, unspecified, initial encounter - Discharge Information Prescriptions: predniSONE 40 mg PO DAILY 5 Days #10 tab Instructions: Allergies, Adult, [id number] Forms: ED Department Discharge Additional Instructions: The following information is given to patients seen in the emergency department who are being discharged to home. This information is to outline your options for follow-up care. We provide all patients seen in our emergency department with a follow-up referral. The need for follow-up, as well as the timing and circumstances, are variable depending upon the specifics of your emergency department visit. If you don't have a primary care physician on staff, we will provide you with a referral. We always advise you to contact your personal physician following an emergency department visit to inform them of the circumstance of the visit and for follow-up with them and/or the need for any referrals to a consulting specialist. The emergency department will also refer you to a specialist when appropriate. This referral assures that you have the opportunity for follow-up care with a specialist. All of these measure are taken in an effort to provide you with optimal care, which includes your follow-up. Under all circumstances we always encourage you to contact your private physician who remains a resource for coordinating your care. When calling for follow-up care, please make the office aware that this follow-up is from your recent emergency room visit. If for any reason you are refused follow-up, please contact the [facility] Emergency Department at and asked to speak to the emergency department charge nurse. Please follow up with your primary care physician. If you do not have a primary care physician, see below: [facility] [address] [place] [address] [id number] [address] [address] [facility] [address] [place] [address] Sepsis Event Note (ED) - Focused Exam Vital Signs: Vital Signs Temp Pulse Resp BP Pulse Ox 01/31/21 15:45 76 15 145/80 H 98 01/31/21 15:14 69 15 146/70 H 98 01/31/21 14:35 96.7 F L 72 18 146/79 H 97 - My Orders Last 24 Hours: My Active Orders 01/31/21 14:32 Pulse Oximetry [RC] ASDIRECTED Saline Lock Insert [OM.PC] Stat - Assessment/Plan Last 24 Hours: My Active Orders 01/31/21 14:32 Pulse Oximetry [RC] ASDIRECTED Saline Lock Insert [OM.PC] Stat
[2021-01-31 17:23] VITALS: BP 147/68; PULSE 70
== END 2021-01-31 16:16 | disposition home or self-care (01) ==
LOC: MW.ED 14:26
DX: R09.89 Other specified symptoms and signs involving the circulatory and respiratory systems (principal); T46.5X5A Adverse effect of other antihypertensive drugs, initial encounter; I10 Essential (primary) hypertension; Z79.899 Other long term (current) drug therapy
CPT/HCPCS: 96374; 96375; 99283; J1200; J2930; J3490; J7030